=== PATIENT | female | born 1950 | race Caucasian/White ===

== ENCOUNTER 2018-04-03 12:57 | Inpatient (IN) | payer OTHER ==
[~2018-04-03] VITALS: Ht 177.8 cm; Wt 56.7 kg
[~2018-04-03 12:57] MED LIST: ABAT125S SQ; FOLI1TAB15 PO; IBUP-2482 PO; METH2.5T6 PO; METO25PO2 MC; VALS320T16 PO
[2018-04-03 13:38] LABS: BASOPHILS % (AUTO) 0.5 % (0.0-5.0); EOSINOPHILS % (AUTO) 0.8 % (0.0-8.0); HEMATOCRIT 35.3 % (36-48); MEAN CORPUSCULAR HEMOGLOBIN 30.2 pg (27.0-33.0); MEAN CORPUSCULAR VOLUME 91.5 fL (79-99); MONOCYTES % (AUTO) 6.3 % (3.0-13.0); NEUTROPHILS % (AUTO) 88.4 % (40.0-77.0); PLATELET COUNT (AUTO) 183 K/uL (130-400); RED BLOOD CELL COUNT(AUTO) 3.86 MIL/uL (4.00-5.50); RED CELL DISTRIBUTION WIDTH 16.2 % (11.0-15.5); WHITE BLOOD COUNT (AUTO) 7.7 K/uL (4.8-10.8)
[2018-04-03 14:04] LABS: CREATININE 0.5 mg/dL (0.5-1.5); POTASSIUM 3.9 mmol/L (3.5-5.1)
[2018-04-03 14:09] LABS: ALBUMIN 1.9 g/dL (3.5-5.0); BILIRUBIN,TOTAL 0.4 mg/dL (0.2-1.0)
[2018-04-03] MEDS ORDERED: ENOXAPARIN SODIUM 60 MG/0.6 ML SQ ONE (15:57)
[2018-04-03] MEDS ORDERED: IOHEXOL-350 75 ML VIAL IV ONE (16:12)
[2018-04-03] MEDS ORDERED: SODIUM CHLORIDE 0.9% 1000ML 1,000 ML IV ONE (17:29)
[2018-04-03] MEDS: SODIUM CHLORIDE 0.9% 1000ML 1,000 ML IV SCH ×2 (19:00→21:13)
[2018-04-03] MEDS ORDERED: ONDANSETRON HCL 4 MG/2 ML VIAL IV PRN (21:15)
[2018-04-03] MEDS ORDERED: ACETAMINOPHEN 325 MG TAB PO PRN (21:15)
[2018-04-03] MEDS ORDERED: METOPROLOL TARTRATE 1 MG/ML 5ML VIAL IV SCH (21:15)
[2018-04-03 21:25] LABS: CRP QUANTITATIVE 174.8 mg/L (0.00-9.0)
[2018-04-03] MEDS ORDERED: METHYLPREDNISOLONE SOD SUCC 125MG/2ML VIAL IVP SCH (21:45)
[2018-04-03 22:10] LABS: CREATINE KINASE, TOTAL 48 U/L (21-232); MYOGLOBIN 15 ng/mL (10-92); TROPONIN I < 0.04 ng/mL (0.00-0.06)
[2018-04-03] MEDS: IPRATROPIUM 0.5 MG/2.5 ML INH IH SCH (22:16)
[2018-04-04] MEDS: IPRATROPIUM 0.5 MG/2.5 ML INH IH SCH ×6 (01:00→21:12)
[2018-04-04] MEDS ORDERED: SODIUM CHLORIDE 0.9% 1000ML 1,000 ML IV ONE (02:15)
[2018-04-04] MEDS ORDERED: METOPROLOL TARTRATE 1 MG/ML 5ML VIAL IV ONE ×3 (02:15→09:41)
[2018-04-04] MEDS: SODIUM CHLORIDE 0.9% 1000ML 1,000 ML IV SCH ×4 (05:00→17:13)
[2018-04-04 06:20] LABS: EOSINOPHILS % (AUTO) 1.9 % (0.0-8.0); LYMPHOCYTES % (AUTO) 6.3 % (21.0-51.0); MEAN CORPUSCULAR HGB CONC 32.2 g/dL (32.0-36.0); MEAN CORPUSCULAR VOLUME 90.1 fL (79-99); MONOCYTES % (AUTO) 8.9 % (3.0-13.0); NEUTROPHILS % (AUTO) 81.9 % (40.0-77.0); NUCLEATED RED BLOOD CELLS 0.1 % (0.0-0.19); PLATELET COUNT (AUTO) 155 K/uL (130-400); RED BLOOD CELL COUNT(AUTO) 3.44 MIL/uL (4.00-5.50); RED CELL DISTRIBUTION WIDTH 16.2 % (11.0-15.5); WHITE BLOOD COUNT (AUTO) 5.3 K/uL (4.8-10.8)
[2018-04-04] MEDS ORDERED: IPRATROPIUM 0.5 MG/2.5 ML INH IH ONE ×2 (06:21→10:06)
[2018-04-04 06:45] LABS: ALANINE AMINOTRANSFERASE 32 U/L (12-78); ALBUMIN 1.7 g/dL (3.5-5.0); ASPARTATE AMINOTRANSFERASE 33 U/L (10-37); BILIRUBIN,TOTAL 0.3 mg/dL (0.2-1.0); CARBON DIOXIDE 26 mmol/L (21-32); CHLORIDE 99 mmol/L (101-111); CREATINE KINASE, TOTAL 12 U/L (21-232); CREATININE 0.5 mg/dL (0.5-1.5); GLOMERULAR FILTR. RATE CALC 130 mL/min (>60); GLUCOSE,RANDOM 79 mg/dL (70-105); MYOGLOBIN 13 ng/mL (10-92); POTASSIUM 3.9 mmol/L (3.5-5.1); SODIUM SERUM 133 mmol/L (136-145); TOTAL PROTEIN, SERUM 6.1 g/dL (6.0-8.3); TROPONIN I < 0.04 ng/mL (0.00-0.06); UREA NITROGEN, BLOOD 13 mg/dL (7-18)
[2018-04-04] MEDS: CEFEPIME HCL 2 GM VIAL IVP SCH ×2 (07:00→19:00)
[2018-04-04] MEDS: PANTOPRAZOLE SODIUM 40 MG TABLET.DR PO SCH (07:30)
[2018-04-04] MEDS: ENOXAPARIN SODIUM 60 MG/0.6 ML SQ SCH (09:00)
[2018-04-04] MEDS: METOPROLOL TARTRATE 25 MG TAB PO SCH ×2 (09:00→21:20)
[2018-04-04] MEDS ORDERED: PANTOPRAZOLE SODIUM 40 MG TABLET.DR PO ONE (09:31)
[2018-04-04] MEDS ORDERED: METOPROLOL TARTRATE 25 MG TAB ONE (09:32)
[2018-04-04] MEDS: LEVOFLOXACIN 750 MG/D5W 150 ML 150 ML IV SCH (09:45)
[2018-04-04] MEDS ORDERED: HYDROCODONE/ACETAMINOPHEN 5/325 MG TAB ONE (09:48)
[2018-04-04 10:05] LABS: APPEARANCE,URINE Clear (CLEAR); BILIRUBIN,URINE Negative (NEGATIVE); COLOR,URINE Yellow (YELLOW); GLUCOSE, URINE (UA) Negative (NEGATIVE); KETONES,URINE Negative (NEGATIVE); LEUKOCYTE ESTERASE ,URINE Negative (NEGATIVE); NITRATE,URINE Negative (NEGATIVE); OCCULT BLOOD,URINE Negative (NEGATIVE); PH,URINE 7.5 (5.0-8.0); PROTEIN,URINE Negative (NEGATIVE); UROBILINOGEN,URINE 0.2 mg/dL (0.2-1.0)
[2018-04-04 10:08] LABS: CREATININE,URINE RANDOM 29 mg/dL (30-135); SODIUM,URINE RANDOM 100 mmol/l (40-220)
[2018-04-04 10:20] LABS: BACTERIA,URINE None Seen /HPF (None Seen); RBC,URINE 0-1 /HPF (0-1); WBC,URINE 0-1 /HPF (0-1)
[2018-04-04 10:24] LABS: ABG BASE EXCESS -1.9 mmol/L (-2.0-3.0); ABG OXYGEN SATURATION 96.6 % (95.0-99.0); ABG PCO2 35 mmHg (32-45)
[2018-04-04] MEDS ORDERED: CEFEPIME HCL 1 GM VIAL ONE (10:33)
[2018-04-04] MEDS ORDERED: ENOXAPARIN SODIUM 60 MG/0.6 ML SQ ONE (10:34)
[2018-04-04] MEDS ORDERED: METHYLPREDNISOLONE SOD SUCC 125MG/2ML VIAL ONE (12:18)
[2018-04-04] MEDS ORDERED: LEVOFLOXACIN 750 MG/D5W 150 ML 150 ML ONE (12:18)
[2018-04-04] MEDS: METHYLPREDNISOLONE SOD SUCC 125MG/2ML VIAL IVP SCH ×2 (13:45→21:20)
[2018-04-04 15:15] VITALS: BP 133/89
[2018-04-04] MEDS ORDERED: HYDR-4377 PO (16:14)
[2018-04-04] MEDS ORDERED: ASPI-1197 PO (16:14)
[2018-04-04] MEDS: HYDROCODONE/ACETAMINOPHEN 5/325 MG TAB PO PRN ×2 (17:32→23:02)
[2018-04-04 19:41] VITALS: BP 135/82
[2018-04-04] MEDS: BUDESONIDE 0.5 MG/2 ML INH IH SCH (21:12)
[2018-04-04] MEDS ORDERED: DOCUSATE SODIUM 100 MG CAP PO ONE (21:22)
[2018-04-04 23:22] VITALS: BP 135/90
[2018-04-05] VITALS (7 sets, daily range): BP systolic 125–159; BP diastolic 82–102
[2018-04-05] MEDS: SODIUM CHLORIDE 0.9% 1000ML 1,000 ML IV SCH ×2 (01:00→03:13)
[2018-04-05] MEDS: IPRATROPIUM 0.5 MG/2.5 ML INH IH SCH ×6 (01:24→22:04)
[2018-04-05] MEDS: HYDROCODONE/ACETAMINOPHEN 5/325 MG TAB PO PRN ×5 (02:58→21:06)
[2018-04-05 04:32] LABS: BASOPHILS % (AUTO) 0.1 % (0.0-5.0); HEMATOCRIT 32.7 % (36-48); LYMPHOCYTES % (AUTO) 9.3 % (21.0-51.0); MEAN CORPUSCULAR HEMOGLOBIN 30.2 pg (27.0-33.0); MEAN CORPUSCULAR HGB CONC 33.4 g/dL (32.0-36.0); MEAN CORPUSCULAR VOLUME 90.5 fL (79-99); NEUTROPHILS % (AUTO) 84.6 % (40.0-77.0); PLATELET COUNT (AUTO) 186 K/uL (130-400); RED BLOOD CELL COUNT(AUTO) 3.61 MIL/uL (4.00-5.50); RED CELL DISTRIBUTION WIDTH 16.2 % (11.0-15.5); WHITE BLOOD COUNT (AUTO) 2.8 K/uL (4.8-10.8)
[2018-04-05 05:01] LABS: ALBUMIN 1.8 g/dL (3.5-5.0); BILIRUBIN,DIRECT 0.1 mg/dL (0.0-0.3); BILIRUBIN,TOTAL 0.3 mg/dL (0.2-1.0); CREATININE 0.7 mg/dL (0.5-1.5); MAGNESIUM 1.6 mg/dL (1.80-2.40); POTASSIUM 4.4 mmol/L (3.5-5.1); TOTAL PROTEIN, SERUM 6.4 g/dL (6.0-8.3)
[2018-04-05] MEDS: METHYLPREDNISOLONE SOD SUCC 125MG/2ML VIAL IVP SCH ×3 (05:08→21:37)
[2018-04-05 05:22] LABS: ABG BASE EXCESS -1.8 mmol/L (-2.0-3.0); ABG HCO3 20.7 mmol/L (21.0-28.0); ABG OXYGEN SATURATION 98.9 % (95.0-99.0); ABG PCO2 30 mmHg (32-45)
[2018-04-05] MEDS: BUDESONIDE 0.5 MG/2 ML INH IH SCH ×2 (08:35→19:32)
[2018-04-05] MEDS: ENOXAPARIN SODIUM 60 MG/0.6 ML SQ SCH ×2 (09:00→09:07)
[2018-04-05] MEDS: PANTOPRAZOLE SODIUM 40 MG TABLET.DR PO SCH (09:06)
[2018-04-05] MEDS: METOPROLOL TARTRATE 25 MG TAB PO SCH ×2 (09:06→21:05)
[2018-04-05] MEDS: CEFEPIME HCL 2 GM VIAL IVP SCH ×2 (09:08→21:37)
[2018-04-05] MEDS: LEVOFLOXACIN 750 MG/D5W 150 ML 150 ML IV SCH (11:31)
[2018-04-05] MEDS: MAGNESIUM 2GM PREMIX 50ML 50 ML IV SCH (15:00)
[2018-04-05] MEDS: DOCUSATE SODIUM 100 MG CAP PO PRN (21:05)
[2018-04-06] MEDS: HYDROCODONE/ACETAMINOPHEN 5/325 MG TAB PO PRN ×6 (01:38→20:33)
[2018-04-06] MEDS: IPRATROPIUM 0.5 MG/2.5 ML INH IH SCH ×6 (02:00→21:43)
[2018-04-06 03:48] VITALS: BP 166/112
[2018-04-06 04:02] LABS: BASOPHILS % (AUTO) 0.1 % (0.0-5.0); HEMATOCRIT 31.7 % (36-48); LYMPHOCYTES % (AUTO) 5.8 % (21.0-51.0); MEAN CORPUSCULAR HEMOGLOBIN 29.3 pg (27.0-33.0); MEAN CORPUSCULAR HGB CONC 32.6 g/dL (32.0-36.0); MEAN CORPUSCULAR VOLUME 89.8 fL (79-99); MONOCYTES % (AUTO) 1.8 % (3.0-13.0); NEUTROPHILS % (AUTO) 92.3 % (40.0-77.0); PLATELET COUNT (AUTO) 177 K/uL (130-400); RED BLOOD CELL COUNT(AUTO) 3.52 MIL/uL (4.00-5.50); RED CELL DISTRIBUTION WIDTH 15.9 % (11.0-15.5)
[2018-04-06 04:21] LABS: CREATININE 0.7 mg/dL (0.5-1.5); MAGNESIUM 1.9 mg/dL (1.80-2.40); POTASSIUM 3.7 mmol/L (3.5-5.1)
[2018-04-06] MEDS: PANTOPRAZOLE SODIUM 40 MG TABLET.DR PO SCH (04:52)
[2018-04-06] MEDS: METHYLPREDNISOLONE SOD SUCC 125MG/2ML VIAL IVP SCH ×3 (04:52→20:34)
[2018-04-06] MEDS: MAGNESIUM 2GM PREMIX 50ML 50 ML IV SCH (04:52)
[2018-04-06 04:54] VITALS: BP 143/96
[2018-04-06] MEDS: BUDESONIDE 0.5 MG/2 ML INH IH SCH ×2 (06:18→18:42)
[2018-04-06 08:16] VITALS: BP 163/98
[2018-04-06] MEDS: METOPROLOL TARTRATE 25 MG TAB PO SCH ×2 (08:34→20:32)
[2018-04-06] MEDS: ENOXAPARIN SODIUM 60 MG/0.6 ML SQ SCH (08:36)
[2018-04-06] MEDS: CEFEPIME HCL 2 GM VIAL IVP SCH ×2 (08:48→20:33)
[2018-04-06] MEDS: LEVOFLOXACIN 750 MG/D5W 150 ML 150 ML IV SCH (08:48)
[2018-04-06] MEDS ORDERED: FUROSEMIDE 10 MG/ML 2ML VIAL IV SCH (11:30)
[2018-04-06 11:47] VITALS: BP 130/84
[2018-04-06 16:00] VITALS: BP 132/84
[2018-04-06 19:33] VITALS: BP 146/94
[2018-04-06] MEDS: DOCUSATE SODIUM 100 MG CAP PO PRN (20:33)
[2018-04-07] MEDS: HYDROCODONE/ACETAMINOPHEN 5/325 MG TAB PO PRN ×5 (00:10→14:15)
[2018-04-07 00:14] VITALS: BP 143/91
[2018-04-07] MEDS: IPRATROPIUM 0.5 MG/2.5 ML INH IH SCH ×2 (01:56→06:03)
[2018-04-07 03:46] LABS: BASOPHILS % (AUTO) 0.1 % (0.0-5.0); HEMATOCRIT 33.4 % (36-48); LYMPHOCYTES % (AUTO) 3.9 % (21.0-51.0); MEAN CORPUSCULAR HEMOGLOBIN 29.8 pg (27.0-33.0); MEAN CORPUSCULAR HGB CONC 33.1 g/dL (32.0-36.0); MEAN CORPUSCULAR VOLUME 89.9 fL (79-99); MONOCYTES % (AUTO) 3.1 % (3.0-13.0); NEUTROPHILS % (AUTO) 92.9 % (40.0-77.0); NUCLEATED RED BLOOD CELLS 0.1 % (0.0-0.19); PLATELET COUNT (AUTO) 180 K/uL (130-400); RED BLOOD CELL COUNT(AUTO) 3.72 MIL/uL (4.00-5.50); RED CELL DISTRIBUTION WIDTH 16.1 % (11.0-15.5); WHITE BLOOD COUNT (AUTO) 4.8 K/uL (4.8-10.8)
[2018-04-07 03:49] VITALS: BP 147/90
[2018-04-07 04:19] LABS: CREATININE 0.7 mg/dL (0.5-1.5); MAGNESIUM 2.2 mg/dL (1.80-2.40); POTASSIUM 3.2 mmol/L (3.5-5.1)
[2018-04-07] MEDS: PANTOPRAZOLE SODIUM 40 MG TABLET.DR PO SCH (06:13)
[2018-04-07] MEDS: BUDESONIDE 0.5 MG/2 ML INH IH SCH (06:14)
[2018-04-07] MEDS: METHYLPREDNISOLONE SOD SUCC 125MG/2ML VIAL IVP SCH ×2 (06:14→13:29)
[2018-04-07 07:34] VITALS: BP 130/69
[2018-04-07] MEDS: LEVOFLOXACIN 750 MG/D5W 150 ML 150 ML IV SCH (09:19)
[2018-04-07] MEDS: CEFEPIME HCL 2 GM VIAL IVP SCH (09:20)
[2018-04-07] MEDS: METOPROLOL TARTRATE 25 MG TAB PO SCH (09:20)
[2018-04-07] MEDS: ENOXAPARIN SODIUM 60 MG/0.6 ML SQ SCH (09:21)
[2018-04-07] MEDS ORDERED: POTASSIUM CHLORIDE 20 MEQ ERTAB PO SCH (10:45)
[2018-04-07 11:05] VITALS: BP 119/76
[2018-04-07] MEDS ORDERED: LEVO750T46 PO (11:05)
[2018-04-07] MEDS ORDERED: FLUT1BLS3 IH (11:05)
[2018-04-07] MEDS ORDERED: BUDE0.5A8 IH (11:05)
[2018-04-07] MEDS ORDERED: IPRATROPIUM 0.5 MG/2.5 ML INH IH SCH (12:00)
[2018-04-15] MEDS ORDERED: 1/2 NORMAL SALINE 1,000 ML IV ONE (01:29)
[2018-04-15] MEDS ORDERED: ENOXAPARIN SODIUM 40 MG/0.4 ML SYRINGE SQ ONE (03:19)
== END 2018-04-07 15:02 | disposition home or self-care (01) | DRG 193 ==
LOC: EDH 12:57 → EDHIP 18:31 → 2AH 04-04 15:15
PROVIDERS: ADMIT Internal Medicine; ATTEND Internal Medicine
DX: J18.9 Pneumonia, unspecified organism (principal); J96.21 Acute and chronic respiratory failure with hypoxia; E43 Unspecified severe protein-calorie malnutrition; J44.0 Chronic obstructive pulmonary disease with (acute) lower respiratory infection; J90 Pleural effusion, not elsewhere classified; E44.1 Mild protein-calorie malnutrition; E87.1 Hypo-osmolality and hyponatremia; C79.51 Secondary malignant neoplasm of bone; I69.354 Hemiplegia and hemiparesis following cerebral infarction affecting left non-dominant side; J44.1 Chronic obstructive pulmonary disease with (acute) exacerbation; I10 Essential (primary) hypertension; J84.10 Pulmonary fibrosis, unspecified
CPT/HCPCS: 36415; 36600; 71045; 71046; 71275; 80048; 80053; 80076; 80339; 81001; 82550; 82570; 82803; 83605; 83735; 83874; 83880; 83935; 84300; 84484; 85025; 85378; 86140; 87040; 87804; 93005; 93306; 93970; 94640; 94664; 94760; 99291; A4218; G0378; J0692; J1650; J1940; J1956; J2930; J3475; J3490; J7030; Q9967